=== PATIENT | male | born 1970 | race Caucasian/White ===

== ENCOUNTER 2021-06-18 12:14 | Observation (INO) | payer OTHER ==
--- NOTE | 2021-06-18 14:09 | ERPHSYRPT ---
- History of Present Illness Source: patient Exam Limitations: no limitations Patient Subjective Stated Complaint: " I've had a horrible headache, cough, and shortness of breath. I was diagnosed with Covid last Friday and pnuemonia last Friday. They treated me with a Z-pack but I'm still not any better". Triage Nursing Assessment: Pt presents to ER with complaints r/t Covid. Pt complains of headache, body aches, nausea, shortness of breath, cough. Pt has been sick since the end of May. Pt is alert and oriented x3. Skin is pink, warm, and dry. States trying to keep fluids down, vomited once today but believes it was due to excessive cough. States has productive cough and shortness of breath. Respirations are easy. Complains of pain all over his body and all over head. Pt complains of dizziness and lightheadedness. Physician History: 50 yo wm w CV19 diagnosed on 06/11/21 presents w SANTA/lethargy/Dyspnea. RA sats 87- 91%. No significant N/V/D. Timing/Duration: other (06/09/21) Cough Quality/Degree: dry cough Possible Cause: no prior episodes Associated Symptoms: fever, chills, cough, headache, muscle aches, nasal drainage, sore throat, No chest pain/soreness, No dizziness, No earache, No facial pain, No lightheadedness, No nasal congestion, No sinus infection, No wheezing Allergies/Adverse Reactions: No Known Drug Allergies Allergy (Verified 06/18/21 13:05) Home Medications: No Reportable Medications [No Reported Medications] 06/18/21 [History] Hx Tetanus, Diphtheria Vaccination/Date Given: No Hx Influenza Vaccination/Date Given: No Hx Pneumococcal Vaccination/Date Given: No Immunizations Up to Date: Yes Travel Risk - International Travel Have you traveled outside of the country in past 3 weeks: No - Coronavirus Screening Are you exhibiting any of the following symptoms?: Yes Symptoms: Cough: New Onset, Headaches/Body Aches/Fatigue - Vaccine Status Have you recieved a Covid-19 vaccination: No - Review of Systems Constitutional: Fever, Chills, Fatigue, Lethargy Eyes: No Symptoms Ears, Nose, & Throat: Nose Congestion Respiratory: No Symptoms, Cough, Dyspnea Cardiac: No Symptoms Abdominal/Gastrointestinal: No Symptoms, No Nausea, No Vomiting, No Diarrhea Genitourinary Symptoms: No Symptoms Musculoskeletal: No Symptoms, Arthralgias, Myalgias Skin: No Symptoms Neurological: No Symptoms, Headache Psychological: No Symptoms Endocrine: No Symptoms Hematologic/Lymphatic: No Symptoms Immunological/Allergic: No Symptoms - Past Medical History Pertinent Past Medical History: No - Past Surgical History Past Surgical History: No - Social History Smoking Status: Never smoker Exposure to second hand smoke: No Patient Lives Alone: No Significant Family History: no pertinent family hx - Nursing Vital Signs Nursing Vital Signs: Initial Vital Signs Temperature 97.7 F 06/18/21 12:58 Pulse Rate 79 06/18/21 12:58 Respiratory Rate 18 06/18/21 12:58 Blood Pressure 127/72 06/18/21 12:58 O2 Sat by Pulse Oximetry 93 L 06/18/21 12:58 Pain Scale Pain Intensity 3 Hypoxic - Physical Exam General Appearance: mild distress Eye Exam: PERRL/EOMI, eyes nml inspection Ears, Nose, Throat Exam: normal ENT inspection, TMs normal, pharynx normal, moist mucous membranes Neck Exam: normal inspection, non-tender, supple, full range of motion, No meningismus, No mass, No Brudzinski Respiratory Exam: airway intact, crackles/rales (Scattered Rales B) Cardiovascular Exam: regular rate/rhythm, No murmur Gastrointestinal/Abdomen Exam: soft, normal bowel sounds, No tenderness Back Exam: normal inspection, normal range of motion, No CVA tenderness Extremity Exam: normal inspection, normal range of motion Neurologic Exam: alert, oriented x 3, cooperative, 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, normal mood/affect, nml station & gait, sensation nml, No motor deficits, No sensory deficit Skin Exam: normal color, warm, dry Lymphatic Exam: No adenopathy SpO2 Interpretation: borderline oxygenation SpO2: 92 O2 Delivery: Room Air - Course Nursing assessment & vital signs reviewed: Yes - Radiology Exams Chest X-ray Interpretation: Discussed w/ radiologist (Worsening CV19 appearance) Ordered Tests: Active Orders 24 hr Category Date Time Status EKG-ER Only STAT Care 06/18/21 14:06 Completed Clear Liquid Diet 06/19/21 Breakfast Active CHEST 1 VIEW (PORTABLE) Routine Exams 06/19/21 Stop Req CHEST 1 VIEW (PORTABLE) Stat Exams 06/18/21 14:07 Completed CBC AM.LAB Lab 06/19/21 04:00 Ordered CBC Stat Lab 06/18/21 14:25 Completed CMP AM.LAB Lab 06/19/21 04:00 Ordered CMP Stat Lab 06/18/21 14:25 Completed Lactic Acid Stat Lab 06/18/21 14:06 Completed PROTIME WITH INR Stat Lab 06/18/21 14:25 Completed PTT Stat Lab 06/18/21 14:25 Completed TROPONIN Q3H Lab 06/18/21 14:25 Completed TROPONIN Q3H Lab 06/18/21 17:55 Completed TROPONIN Q3H Lab 06/19/21 02:15 Ordered Transfer Order Routine Transfer 06/18/21 Completed Medication Summary Generic Name Dose Route Start Last Admin Trade Name Freq PRN Reason Stop Dose Admin Dexamethasone Sodium Phosphate 4 mg 06/19/21 10:00 Decadron 4 Mg Inj IV 07/19/21 09:59 DAILY TEE Enoxaparin Sodium 100 mg 06/18/21 17:15 06/18/21 19:57 Enoxaparin Sodium 1 mg/kg (100 mg) 07/18/21 17:14 100 mg SQ Administration Q12H [facility] Sodium Chloride 1,000 mls @ 0 mls/hr 06/18/21 17:15 Sodium Chloride 0.9% 1000 Ml IV 07/18/21 17:14 .Q0M TEE KVO Remdesivir 100 mg/ Sodium 100 mls @ 100 mls/hr 06/19/21 17:12 Chloride IV 06/22/21 18:11 Q24H TEE Morphine Sulfate 4 mg 06/18/21 17:08 06/18/21 22:32 Morphine Sulfate 4 Mg Inj IV 06/23/21 17:07 4 mg Q4H PRN PRN Administration PAIN Ondansetron HCl 4 mg 06/18/21 17:08 Zofran 4 Mg/2 Ml Vial IV 07/18/21 17:07 Q6H PRN PRN NAUSEA/VOMITING Pantoprazole Sodium 40 mg 06/19/21 10:00 Protonix 40 Mg Iv IV 07/19/21 09:59 Q24H10 TEE Discontinued Medications Generic Name Dose Route Start Last Admin Trade Name Freq PRN Reason Stop Dose Admin Dexamethasone Sodium Phosphate 10 mg 06/18/21 17:11 06/18/21 17:44 Decadron 10mg Inj. IV 06/18/21 17:12 10 mg STAT ONE Administration Dexamethasone Sodium Phosphate Confirm 06/18/21 17:43 Decadron 10mg Inj. Administered 06/18/21 17:44 Dose 10 mg .ROUTE .STK-MED ONE Fentanyl Citrate 100 mcg 06/18/21 17:26 06/18/21 18:33 Sublimaze 100 Mcg/2 Ml IV 06/18/21 17:27 100 mcg STAT ONE Administration Fentanyl Citrate Confirm 06/18/21 18:29 Sublimaze 100 Mcg/2 Ml Administered 06/18/21 18:30 Dose 100 mcg .ROUTE .STK-MED ONE Remdesivir 200 mg/ Sodium 250 mls @ 125 mls/hr 06/18/21 17:12 06/18/21 23:22 Chloride IV 06/18/21 19:11 125 mls/hr ONCE ONE Administration Sodium Chloride Confirm 06/18/21 23:07 Sodium Chloride 0.9% 250 Ml Administered 06/18/21 23:08 Dose 250 mls @ ud IV .STK-MED ONE Ondansetron HCl 4 mg 06/18/21 17:27 06/18/21 18:35 Zofran 4 Mg/2 Ml Vial IV 06/18/21 17:28 4 mg STAT ONE Administration Remdesivir Confirm 06/18/21 23:07 Remdesivir Administered 06/18/21 23:08 Dose 200 mg IV .STK-MED ONE Lab/Rad Data: Laboratory Result Diagrams 06/18/21 14:25 06/18/21 14:25 Laboratory Results 06/18/21 06/18/21 06/18/21 Range/Units 17:55 14:25 14:25 WBC (4.0-10.5) K/mm3 RBC (4.1-5.6) M/mm3 Hgb (12.5-18.0) gm/dl Hct (42-50) % MCV (78-100) fl MCH (26-32) pg MCHC (32-36) g/dl RDW (11.5-14.0) % Plt Count (150-450) K/mm3 MPV (7.5-11.0) fl PT 15.5 H (9.4-12.5) SECONDS INR 1.31 (0.8-3.0) APTT 30.6 (25.1-36.5) SECONDS Sodium (137-145) mmol/L Potassium (3.5-5.1) mmol/L Chloride (98-107) mmol/L Carbon Dioxide (22-30) mmol/L Anion Gap (5-15) MEQ/L BUN (9-20) mg/dL Creatinine (0.66-1.25) mg/dL Estimated GFR ML/MIN Glucose (74-106) mg/dL Lactic Acid (0.4-2.0) Calcium (8.4-10.2) mg/dL Total Bilirubin (0.2-1.3) mg/dL AST (17-59) U/L ALT (0-50) U/L Alkaline Phosphatase (38-126) U/L Troponin I < 0.012 < 0.012 (0.000-0.034) ng/mL Serum Total Protein (6.3-8.2) g/dL Albumin (3.5-5.0) g/dL 06/18/21 06/18/21 06/18/21 Range/Units 14:25 14:25 14:06 WBC 10.0 (4.0-10.5) K/mm3 RBC 3.94 L (4.1-5.6) M/mm3 Hgb 12.5 (12.5-18.0) gm/dl Hct 37.2 L (42-50) % MCV 94.4 (78-100) fl MCH 31.7 (26-32) pg MCHC 33.6 (32-36) g/dl RDW 11.9 (11.5-14.0) % Plt Count 619 H (150-450) K/mm3 MPV 8.5 (7.5-11.0) fl PT (9.4-12.5) SECONDS INR (0.8-3.0) APTT (25.1-36.5) SECONDS Sodium 138 (137-145) mmol/L Potassium 4.1 (3.5-5.1) mmol/L Chloride 105 (98-107) mmol/L Carbon Dioxide 25 (22-30) mmol/L Anion Gap 12.3 (5-15) MEQ/L BUN 11 (9-20) mg/dL Creatinine 0.71 (0.66-1.25) mg/dL Estimated GFR > 60.0 ML/MIN Glucose 126 H (74-106) mg/dL Lactic Acid 1.0 (0.4-2.0) Calcium 8.9 (8.4-10.2) mg/dL Total Bilirubin 0.50 (0.2-1.3) mg/dL AST 20 (17-59) U/L ALT 24 (0-50) U/L Alkaline Phosphatase 57 (38-126) U/L Troponin I (0.000-0.034) ng/mL Serum Total Protein 6.8 (6.3-8.2) g/dL Albumin 3.6 (3.5-5.0) g/dL - Progress Progress: improved Progress Note: 06/18/21 16:[address] Moody Counseled pt/family regarding: lab results, diagnosis, rad results - Departure Departure Disposition: Observation Clinical Impression: COVID-19 Condition: Stable Critical Care Time: No
[2021-06-18 14:33] LABS: Hematocrit 37.2 % (42-50); Hemoglobin 12.5 gm/dl (12.5-18.0); Mean Cell Volume 94.4 fl (78-100); Mean Corpuscular Hemoglobin 31.7 pg (26-32); Mean Corpuscular Hgb Concent. 33.6 g/dl (32-36); Mean Platelet Volume 8.5 fl (7.5-11.0); Platelet Count 619 K/mm3 (150-450); Red Blood Count 3.94 M/mm3 (4.1-5.6); Red Cell Distribution Width 11.9 % (11.5-14.0)
--- NOTE | 2021-06-18 14:37 | XRAY ---
Indication: Positive Covid 19. Comparison: June 12, 2021. Portable chest demonstrates moderate worsening diffuse bilateral patchy airspace disease again without consolidation/large effusion. Heart not enlarged. Bony thorax intact.
[2021-06-18 14:40] LABS: INR 1.31 (0.8-3.0); PROTIME 15.5 SECONDS (9.4-12.5)
[2021-06-18 14:43] LABS: PTT 30.6 SECONDS (25.1-36.5)
[2021-06-18 16:19] LABS: ALBUMIN 3.6 g/dL (3.5-5.0); ALKALINE PHOSPHATASE 57 U/L (38-126); ANION GAP 12.3 MEQ/L (5-15); BLOOD UREA NITROGEN 11 mg/dL (9-20); CHLORIDE 105 mmol/L (98-107); Calcium 8.9 mg/dL (8.4-10.2); Carbon Dioxide 25 mmol/L (22-30); Creatinine 1 0.71 mg/dL (0.66-1.25); EST GLOMERULAR FILTRATION RATE > 60.0 ML/MIN; Glucose 126 mg/dL (74-106); Potassium 4.1 mmol/L (3.5-5.1); SGOT/AST 20 U/L (17-59); SGPT/ALT 24 U/L (0-50); SODIUM 138 mmol/L (137-145); Total Protein 6.8 g/dL (6.3-8.2)
[2021-06-18] MEDS ORDERED: Zofran 4 MG/2 ML VIAL IV PRN (17:08)
[2021-06-18] MEDS ORDERED: MORPHINE SULFATE 4 MG INJ IV PRN (17:08)
[2021-06-18] MEDS ORDERED: DECADRON 10MG INJ. IV ONE (17:11)
[2021-06-18] MEDS ORDERED: REMDESIVIR 200 MG in Sodium Chloride 0.9% 250 ML 250 ML IV ONE (17:12)
[2021-06-18] MEDS ORDERED: Sodium Chloride 0.9% 1000 ML 1,000 ML IV SCH (17:15)
[2021-06-18] MEDS ORDERED: SUBLIMAZE 100 MCG/2 ML IV ONE (17:26)
[2021-06-18] MEDS ORDERED: Zofran 4 MG/2 ML VIAL IV ONE (17:27)
[2021-06-18] MEDS ORDERED: DECADRON 10MG INJ. ONE (17:43)
[2021-06-18] MEDS ORDERED: SUBLIMAZE 100 MCG/2 ML ONE (18:29)
[2021-06-18] MEDS: ENOXAPARIN SODIUM SQ SCH (19:57)
[2021-06-18] MEDS ORDERED: Sodium Chloride 0.9% 250 ML 250 ML IV ONE (23:07)
[2021-06-18] MEDS ORDERED: REMDESIVIR IV ONE (23:07)
[2021-06-19] MEDS ORDERED: TYLENOL EXTRA STRENGTH 500 MG PO PRN (00:22)
[2021-06-19] MEDS ORDERED: ULTRAM 50 MG PO PRN (00:22)
[2021-06-19] MEDS ORDERED: Ativan 2 MG/1 ML VIAL IV PRN (00:22)
[2021-06-19 06:51] LABS: Hematocrit 39.4 % (42-50); Hemoglobin 13.1 gm/dl (12.5-18.0); Mean Cell Volume 94.7 fl (78-100); Mean Corpuscular Hemoglobin 31.5 pg (26-32); Mean Corpuscular Hgb Concent. 33.2 g/dl (32-36); Mean Platelet Volume 9.3 fl (7.5-11.0); Platelet Count 640 K/mm3 (150-450); Red Blood Count 4.16 M/mm3 (4.1-5.6); Red Cell Distribution Width 11.9 % (11.5-14.0); White Blood Count 9.7 K/mm3 (4.0-10.5)
[2021-06-19 07:18] LABS: ALBUMIN 3.5 g/dL (3.5-5.0); ALKALINE PHOSPHATASE 54 U/L (38-126); BLOOD UREA NITROGEN 11 mg/dL (9-20); CHLORIDE 103 mmol/L (98-107); Calcium 8.7 mg/dL (8.4-10.2); Carbon Dioxide 24 mmol/L (22-30); Creatinine 1 0.62 mg/dL (0.66-1.25); EST GLOMERULAR FILTRATION RATE > 60.0 ML/MIN; Glucose 206 mg/dL (74-106); Potassium 4.2 mmol/L (3.5-5.1); SGOT/AST 40 U/L (17-59); SGPT/ALT 23 U/L (0-50); SODIUM 138 mmol/L (137-145); Total Protein 6.5 g/dL (6.3-8.2)
[2021-06-19] MEDS ORDERED: Decadron 4 MG INJ IV SCH ×2 (10:00→18:00)
[2021-06-19] MEDS: PROTONIX 40 MG IV IV SCH (10:05)
[2021-06-19] MEDS: ENOXAPARIN SODIUM SQ SCH ×3 (10:09→21:00)
[2021-06-19] MEDS: HYDROCODONE-ACETAMIN 10-325 MG PO PRN ×2 (12:59→21:01)
--- NOTE | 2021-06-19 15:40 | HP ---
CHIEF COMPLAINT: Shortness of breath, weak, fatigue, positive COVID test. HISTORY OF PRESENT ILLNESS: The patient is a 50 year-old white male who was tested yesterday [place] [facility] [place]. He states his O2 saturations at home have dropped down to high 80's. He felt feverish, extremely achy, tired and hard to get up. No problems drinking or eating. He thinks he probably caught the COVID from his children. He was feeling really bad and came to the emergency room here. The emergency room doctor asked to admit him for observation and treatment for COVID pneumonia. His chest x-ray did show worsening diffuse bilateral patchy airspace disease apparently on an earlier x-ray. EKG showed sinus rhythm. MEDICATIONS: None. ALLERGIES: NKDA. PAST MEDICAL HISTORY: He states he has no chronic diseases. PAST SURGICAL HISTORY: None. SOCIAL HISTORY: . He does not smoke, nondrinker. 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 PHYSICAL EXAMINATION: The patient is alert, orientated, pleasant, in no severe distress. He is on 2 liters with nasal cannula. VITAL SIGNS: Temperature 98.6F, pulse 90, respirations 20. His BMI is 30.8. Weight 240 pounds, height 6'2". HEENT: Pupils equal and reactive to light. Hearing is normal. NECK: Supple without adenopathy. CHEST: Few crackles at bases. CVS: Regular rate. No murmurs or gallops. ABDOMEN: No tenderness or organomegaly. The patient is obese. IMPRESSION: 1) COVID pneumonia, mild. 2) Mild hypoxia. 3) Fatigue. PLAN: The patient will be admitted and treated with IV Remdesivir, Decadron and usual treatment. O2 to keep his O2 saturations above 90%. PROGNOSIS: Good.
[2021-06-19] MEDS ORDERED: REMDESIVIR 100 MG in Sodium Chloride 0.9% 100 ML BAG 100 ML IV SCH (22:00)
[2021-06-20 06:57] LABS: INR 1.28 (0.8-3.0); PROTIME 15.1 SECONDS (9.4-12.5)
[2021-06-20 07:02] LABS: ALKALINE PHOSPHATASE 60 U/L (38-126); ANION GAP 14.7 MEQ/L (5-15); BLOOD UREA NITROGEN 13 mg/dL (9-20); CHLORIDE 100 mmol/L (98-107); Calcium 9.4 mg/dL (8.4-10.2); Carbon Dioxide 27 mmol/L (22-30); Creatinine 1 0.72 mg/dL (0.66-1.25); EST GLOMERULAR FILTRATION RATE > 60.0 ML/MIN; Glucose 139 mg/dL (74-106); Potassium 4.5 mmol/L (3.5-5.1); SGOT/AST 23 U/L (17-59); SGPT/ALT 27 U/L (0-50); SODIUM 138 mmol/L (137-145); Total Protein 7.4 g/dL (6.3-8.2)
[2021-06-20 12:16] VITALS: BP 127/63; PULSE 77; O2SAT 96
[2021-06-20] MEDS: PROTONIX 40 MG IV IV SCH (12:51)
[2021-06-20] MEDS: ENOXAPARIN SODIUM SQ SCH (12:51)
--- NOTE | 2021-06-21 07:59 | DS ---
ADMISSION DIAGNOSIS: COVID pneumonia. DISCHARGE DIAGNOSIS: COVID PNEUMONIA. HOSPITAL COURSE: [place] [facility] [place] He had fever, achy, tired and hard to get up. He thinks he probably caught it from his children who are in high school. He really felt bad. When I saw him initially his O2 was fine on room air however it was dropping to the upper 80's with ambulation at home and he did require oxygen once he got to the floor. 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 BMI was 30.8. He has high blood pressure. No diabetes. Positive findings were fatigued looking and had crackles bilateral. On lab work his D-dimer was elevated but has come down. His body pain was controlled with some hydrocodone after initially starting with morphine. He has no drug addiction problems. He states his mother is an alcoholic so he watches those things. However, he has been placed on tramadol for pain. He was placed on Lovenox 100 mg q.d., dexamethasone 8 mg a day, Remdesivir, Zofran for nausea, Protonix for reflux. The patient gradually improved very good the last few days. He is walking around the room without problems. His O2 kind of borderline. It drops sometimes down to 88 when he walks and we are going to test him to see if he qualifies for home oxygen. His D-dimer on discharge was 1,400 which is still elevated but clinically he is much better. His x-ray however showed some small amount of infiltrate which will take, of course, weeks to change. He is to isolate himself for seven to ten days, call back if his O2 saturations drop in the upper 80's and he can turn up the oxygen himself up to 5. He is to call when that happens. PROGNOSIS: Good.
== END 2021-06-20 13:10 | disposition home or self-care (01) ==
LOC: ED 12:14 → MED SURG 20:31
PROVIDERS: ADMIT Family Medicine; ATTEND Family Medicine
DX: U07.1 COVID-19 (principal); J12.82 Pneumonia due to coronavirus disease 2019; R51.9 Headache, unspecified; R79.1 Abnormal coagulation profile; R53.83 Other fatigue; R09.02 Hypoxemia
CPT/HCPCS: 36000; 36415; 71045; 80053; 83605; 84484; 85027; 85379; 85610; 85730; 93005; 93268; 94762; 96372; 96374; 96375; 99285; G0378; J1100; J1650; J2060; J2270; J2405; J3010; A9270-GY

== ENCOUNTER 2022-11-25 15:53 | Emergency (ER) | payer OTHER ==
--- NOTE | 2022-11-25 15:58 | ERPHSYRPT ---
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 It occurred this morning. Patient did apply ice to the area. He has full function and he is neurovascularly intact. However, he has noticed that there was an enlarging hematoma present and he became concerned. Patient's tetanus status is not up-to-date. Occurred: this morning Method of Injury: direct blow Quality: constant, aching Severity of Pain-Max: mild Severity of Pain-Current: mild (To moderate to moderate) Extremities Pain Location: hand: left (Dorsal aspect hematoma) Associated Symptoms: none Allergies/Adverse Reactions: No Known Drug Allergies Allergy (Verified 06/18/21 13:05) Hx Tetanus, Diphtheria Vaccination/Date Given: No Hx Influenza Vaccination/Date Given: No Hx Pneumococcal Vaccination/Date Given: No Travel Risk - International Travel Have you traveled outside of the country in past 3 weeks: No - Coronavirus Screening Are you exhibiting any of the following symptoms?: No Close contact with a COVID-19 positive Pt in past 14-21 Days: No - Vaccine Status Have you recieved a Covid-19 vaccination: No - Review of Systems Constitutional: No Symptoms Eyes: No Symptoms Ears, Nose, & Throat: No Symptoms Respiratory: No Symptoms Cardiac: No Symptoms Abdominal/Gastrointestinal: No Symptoms Genitourinary Symptoms: No Symptoms Musculoskeletal: Injury (Dorsal aspect left hand) Skin: Other (Hematoma dorsal aspect left hand) Neurological: No Symptoms Psychological: No Symptoms Endocrine: No Symptoms Hematologic/Lymphatic: No Symptoms Immunological/Allergic: No Symptoms All Other Systems: Reviewed and Negative - Past Medical History Pertinent Past Medical History: No - Past Surgical History Past Surgical History: No - Social History Smoking Status: Never smoker Exposure to second hand smoke: No Drug Use: none Patient Lives Alone: No Significant Family History: no pertinent family hx - Nursing Vital Signs Nursing Vital Signs: Initial Vital Signs Temperature 96.3 F 11/25/22 16:10 Pulse Rate 72 11/25/22 16:10 Respiratory Rate 18 11/25/22 16:10 Blood Pressure 146/82 11/25/22 16:10 O2 Sat by Pulse Oximetry 98 11/25/22 16:10 Pain Scale Pain Intensity 4 - Physical Exam General Appearance: no apparent distress, alert Eyes, Ears, Nose, Throat Exam: normal ENT inspection, moist mucous membranes Neck Exam: normal inspection, non-tender, supple, full range of motion Cardiovascular/Respiratory Exam: chest non-tender, no respiratory distress Abdominal Exam: non-tender Back Exam: normal inspection, normal range of motion, No CVA tenderness, No vertebral tenderness Shoulder Exam: normal inspection Elbow/Forearm Exam: normal inspection, non-tender, no evidence of injury, normal ROM Wrist Exam: normal inspection, non-tender, no evidence of injury, normal ROM Hand Exam: normal ROM, soft tissue tenderness (Dorsal aspect hematoma with a puncture wound centrally located), swelling (Dorsal aspect left hand) Neuro/Tendon Exam: normal sensation, normal motor functions, normal tendon functions, responds to pain, no evidence tendon injury Mental Status Exam: alert, oriented x 3, cooperative Skin Exam: other O2 Delivery: Room Air - Course Nursing assessment & vital signs reviewed: Yes Ordered Tests: Active Orders 24 hr Category Date Time Status HAND (MINIMUM 3 VIEWS) Stat Exams 11/25/22 16:07 Taken Medication Summary Discontinued Medications Generic Name Dose Route Start Last Admin Trade Name Freq PRN Reason Stop Dose Admin Diphtheria/Tetanus/Acell Pertussis 0.5 ml 11/25/22 16:05 11/25/22 16:17 Tdap --Diph,Pertuss(Acell),Tet Vac/Pf 0.5 Ml Vial IM 11/25/22 16:06 0.5 ml .ONCE ONE Administration Diphtheria/Tetanus/Acell Pertussis Confirm 11/25/22 16:16 Tdap --Diph,Pertuss(Acell),Tet Vac/Pf 0.5 Ml Vial Administered 11/25/22 16:17 Dose 0.5 ml IM .STK-MED ONE Medical Desision Making - Independent Historian Additional History obtained from: Spouse - Discussion of managment Reviewed:: Test results Agreed on:: Treatment plan, need for follow-up - Diagnostic Testing Radiological Interpretation: Interpreted by me (X-ray left hand interpreted by me with no evidence of any acute fracture or dislocation. Soft tissue swelling dorsal aspect. No foreign body) - Risk of complications Low Risk: Low risk of morbidity from additional dx testing or treatment - Departure Clinical Impression: Contusion of left hand, Traumatic hematoma of left hand Condition: Stable Critical Care Time: No Referrals: CASSY MADDEN MD [Primary Care Provider] - Follow up/PCP as directed Additional Instructions: Ice pack every 8 hours to dorsal aspect of left hand for the next 24 to 48 hours. After that time, may alternate ice and heat. Take your antibiotics as prescribed. Use Tylenol and ibuprofen for pain control. Prescriptions: Cephalexin Mh 500 mg [Keflex 500 mg] 500 mg PO TID #21 cap
[2022-11-25] MEDS ORDERED: Adacel Vial IM ONE ×2 (16:05→16:16)
[2022-11-25 16:35] VITALS: BP 146/82; PULSE 72; O2SAT 98
--- NOTE | 2022-11-25 16:37 | XRAY ---
Indication: Posterior swelling following injury. Comparison: None 3 view left hand demonstrates mild posterior soft tissue swelling. Incidental 2 mm bone island base 1st metacarpal. No other bony, articular, or soft tissue abnormalities.
== END 2022-11-25 16:50 | disposition home or self-care (01) ==
LOC: ED 15:53
DX: S60.222A Contusion of left hand, initial encounter (principal); W31.89XA Contact with other specified machinery, initial encounter; Y99.0 Civilian activity done for income or pay; Z28.310 Unvaccinated for COVID-19
CPT/HCPCS: 73130; 90471; 90715; 99283

== ENCOUNTER 2023-05-15 13:15 | Emergency (ER) | payer OTHER ==
--- NOTE | 2023-05-15 13:18 | ERPHSYRPT ---
- History of Present Illness Time Seen by Provider: 05/15/23 13:18 Source: patient, family Exam Limitations: no limitations Physician History: This is a 52-year-old white male patient of Dr. Madden who presents to the emergency department with a history of chronic low back pain issues. He is not on any medications to help his back pain. He did not fall or suffer any acute traumatic injury per his report. However he was working on his car and was lifting heavy equipment when he felt a sudden severe pain in his back which shot down into his right buttock and right posterior thigh. He thought he would rest last night and today and the pain would improve but it has not. He does not have bowel or urinary incontinence. He does not have numbness into his feet Timing/Duration: yesterday Method of Injury: bending, lifting Quality: radiating, sharp, stabbing Back Pain Location: lumbar spine, paraspinous muscles Back Pain Radiation: buttocks (Right side primarily) Severity of Pain-Max: moderate Associated Symptoms: lower back pain, muscle spasms, No urinary incontinence, No loss of bowel control, No constipation, No numbness in legs/feet, No tingling in legs/feet Previous symptoms: no recent treatment Allergies/Adverse Reactions: No Known Drug Allergies Allergy (Verified 05/15/23 13:33) Home Medications: Sildenafil Citrate 1 tab PO DAILY 05/15/23 [History] Hx Tetanus, Diphtheria Vaccination/Date Given: No Hx Influenza Vaccination/Date Given: No Hx Pneumococcal Vaccination/Date Given: No Travel Risk - International Travel Have you traveled outside of the country in past 3 weeks: No - Coronavirus Screening Are you exhibiting any of the following symptoms?: No - Vaccine Status Have you recieved a Covid-19 vaccination: No Talent Buyer: Unknown - Vaccination Dates Dates if Unknown: ? - Review of Systems Constitutional: No Symptoms Eyes: No Symptoms Ears, Nose, & Throat: No Symptoms Respiratory: No Symptoms Cardiac: No Symptoms Abdominal/Gastrointestinal: No Symptoms Genitourinary Symptoms: No Symptoms Musculoskeletal: Back Pain Skin: No Symptoms Neurological: No Symptoms Psychological: No Symptoms Endocrine: No Symptoms Hematologic/Lymphatic: No Symptoms Immunological/Allergic: No Symptoms All Other Systems: Reviewed and Negative - Past Medical History Pertinent Past Medical History: No - Past Surgical History Past Surgical History: No - Social History Smoking Status: Never smoker Exposure to second hand smoke: No Drug Use: none Patient Lives Alone: No Significant Family History: no pertinent family hx - Nursing Vital Signs Nursing Vital Signs: Initial Vital Signs Temperature 98.7 F 05/15/23 13:25 Pulse Rate 62 05/15/23 13:25 Respiratory Rate 17 05/15/23 13:25 Blood Pressure 138/75 05/15/23 13:25 O2 Sat by Pulse Oximetry 100 05/15/23 13:25 Pain Scale Pain Intensity 10 - Physical Exam General Appearance: mild distress, alert, anxiety Eye Exam: PERRL/EOMI, eyes nml inspection Ears, Nose, Throat Exam: normal ENT inspection, moist mucous membranes Neck Exam: normal inspection, non-tender, supple, full range of motion Respiratory Exam: normal breath sounds, lungs clear, No chest tenderness, No respiratory distress Cardiovascular Exam: regular rate/rhythm, normal heart sounds, normal peripheral pulses Gastrointestinal Exam: soft, normal bowel sounds, No tenderness Rectal Exam: not done Back Exam: normal inspection, decreased range of motion, muscle spasm, No vertebral tenderness Extremity Exam: normal inspection, normal range of motion, pelvis stable Neurologic Exam: alert, oriented x 3, cooperative, hearing screener II-XII nml as tested, normal mood/affect, nml cerebellar function, sensation nml Skin Exam: normal color, warm, dry SpO2 Interpretation: normal O2 Delivery: Room Air - Course Nursing assessment & vital signs reviewed: Yes Ordered Tests: Active Orders 24 hr Category Date Time Status LUMBAR LIMITED (2 OR 3 VIEWS) Stat Exams 05/15/23 13:30 Completed Medication Summary Discontinued Medications Generic Name Dose Route Start Last Admin Trade Name Josuéq PRN Reason Stop Dose Admin Methylprednisolone Sodium 0 mg 05/15/23 13:49 05/15/23 14:12 Succinate 125 mg/ Sterile IM 05/15/23 13:50 125 mg Water 2 ml STAT ONE Administration Methylprednisolone Sodium Succinate Confirm 05/15/23 14:11 Methylprednis Sod Succ 125 Mg/2 Ml Vial Administered 05/15/23 14:12 Dose 125 mg .ROUTE .STK-MED ONE Orphenadrine Citrate 60 mg 05/15/23 13:50 05/15/23 14:13 Orphenadrine Citrate 60 Mg/2 Ml Vial IM 05/15/23 13:51 60 mg STAT ONE Administration Orphenadrine Citrate Confirm 05/15/23 14:10 Orphenadrine Citrate 60 Mg/2 Ml Vial Administered 05/15/23 14:11 Dose 60 mg .ROUTE .STK-MED ONE Oxycodone/Acetaminophen 1 tab 05/15/23 13:49 05/15/23 14:12 Oxycodone Hcl/Apap 5 Mg/325 Mg Tablet PO 05/15/23 13:50 1 tab STAT STA Administration Oxycodone/Acetaminophen Confirm 05/15/23 14:10 Oxycodone Hcl/Apap 5 Mg/325 Mg Tablet Administered 05/15/23 14:11 Dose 1 tab .ROUTE .STK-MED ONE Sterile Water Confirm 05/15/23 14:10 Water For Injection,Sterile 10 Ml Vial Administered 05/15/23 14:11 Dose 10 ml IJ .STK-MED ONE - Progress Progress: improved, pain not gone completely, re-examined Progress Note: 05/15/23 14:06 This patient's medical issue is 1 of low complexity. The level of complexity in the workup performed is based on review of the patient's past medical history, review of the patient's medication list, review of patient drug allergy list, history present illness and physical findings on examination. The workup in this patient includes lumbar spine series. We will evaluate this study. Patient will receive an injection of Solu-Medrol and Norflex intramuscularly. We will also provide the patient with a Percocet 5/325 1 tablet orally here in the emergency department. 05/15/23 14:24 Lumbar spine x-ray was interpreted by the radiologist. There is disc narrowing L5-S1. No acute fracture or subluxation present 05/15/23 14:25 Counseled pt/family regarding: diagnosis, need for follow-up, rad results Medical Desision Making - Independent Historian Additional History obtained from: Child - Diagnostic Testing Diagnostic test were ordered, analyzed, and reviewed by me: Yes Radiological Interpretation: Reviewed by me, Teleradiologist Report - Risk of complications The pt has a mod risk of morbidity or mortality based on: Need for prescription drug management - Departure Departure Disposition: Home Clinical Impression: Sciatica Condition: Stable Critical Care Time: No Referrals: CASSY MADDEN MD [Primary Care Provider] - Follow up/PCP as directed Additional Instructions: Take your medication as prescribed. Call your primary care provider today to make arranges for follow-up appointment for further evaluation management. Prescriptions: Prednisone 10 mg [Deltasone 10 mg] 10 mg PO TID #12 tablet Orphenadrine Citrate 100 mg [Norflex 100 MG Tablet] 100 mg PO BID #10 tab
[2023-05-15 13:44] VITALS: RESP 17; TEMP 98.7
[2023-05-15] MEDS ORDERED: PERCOCET TABLET 5/325MG PO STA (13:49)
[2023-05-15] MEDS ORDERED: solu-MEDROL 125 MG, Sterile H2O 10 ml 2 ML IM ONE ×2 (13:49)
[2023-05-15] MEDS ORDERED: Norflex 60 MG/2 ML IM ONE (13:50)
--- NOTE | 2023-05-15 14:07 | XRAY ---
Indication: Right low back pain. Comparison: None 3 view lumbar spine demonstrates 6 lumbar segments in normal alignment with minimal multilevel endplate spurring, L6-S1 disc space narrowing, and mild diffuse fecal stasis. No other bony, articular, or soft tissue abnormalities.
[2023-05-15] MEDS ORDERED: Norflex 60 MG/2 ML ONE (14:10)
[2023-05-15] MEDS ORDERED: PERCOCET TABLET 5/325MG ONE (14:10)
[2023-05-15] MEDS ORDERED: Sterile H2O 10 ml IJ ONE (14:10)
[2023-05-15] MEDS ORDERED: solu-MEDROL ONE (14:11)
[2023-05-15 14:37] VITALS: BP 108/73; PULSE 61; O2SAT 97
== END 2023-05-15 14:55 | disposition home or self-care (01) ==
LOC: ED 13:15
DX: M54.31 Sciatica, right side (principal); Z79.899 Other long term (current) drug therapy; Z79.52 Long term (current) use of systemic steroids; Z28.310 Unvaccinated for COVID-19
CPT/HCPCS: 72100; 96372; 99283; J2360; J2930; A9270-GY